=== PATIENT | female | born 1965 | race African-American/Black ===

== ENCOUNTER 2018-11-13 20:50 | Emergency (ER) | payer MEDICAID, OTHER ==
[~2018-11-13] VITALS: Ht 160 cm; Wt 72.6 kg
[~2018-11-13 20:50] MED LIST: ASPIRIN EC325 MG ORAL; BENZTROPINE MESY2 MG PO; CALCITRIOL0.25 MCG PO; DEPAKOTE500 MG PO; FLOVENT2 PUFFS INH; FOLIC ACID1 MG ORAL; GABAPENTIN400 MG ORAL; GEODON20 MG ORAL; KLONOPIN1 MG ORAL; LEVOTHYROXINE25 MCG ORAL; NEPHROVITE1 TAB ORAL; PROVERA10 MG IM; QUETIAPINE FUM200 MG ORAL; SEROQUEL200 MG ORAL
[2018-11-13 21:00] VITALS: BP 138/72
[2018-11-13] MEDS ORDERED: Acetaminophen 500mg (ES) tab ORAL ONE (21:00)
--- NOTE | 2018-11-13 21:00 | NUR ---
ED Nurse Note: Per RA 826 patient fell while walking with walker at [facility]-no KO. AO2 to name and place. Denies pain. VSS NAD
[2018-11-13] MEDS ORDERED: IBUPROFEN600 MG ORAL (21:02)
--- NOTE | 2018-11-13 21:02 | Emergency Room Report ---
History of Present Illness General Chief Complaint: Multiple Trauma/Fall Source: Patient, Medical Record, EMS Present Illness HPI This is a 53-year-old female with a psychiatric history as well as her blood pressure and renal failure on hemodialysis. Patient presents from a longterm with chief complaint of head injury. She slipped and fell backward hit her head. Did not pass out. This occur prior to arrival. Pain is 7 out of 10. No nausea no vomiting. No fever chills. No other complaint. Allergies: Coded Allergies: HALOPERIDOL (Verified Allergy, Unknown, 02/22/13) Patient History Past Medical History: see triage record, old chart reviewed, HTN, renal disease , dialysis Past Surgical History: other Pertinent Family History: none Social History: Denies: smoking Now: No Immunizations: other Reviewed Nursing Documentation: PMH: Agreed; PSxH: Agreed Nursing Documentation-PMH Past Medical History: No History, Except For Hx Dialysis: Yes - ESRD History Of Psychiatric Problem: Yes - paranoid schiz Hx Neurological Problems: Yes - schizophrenia, MR, vit D deficiency Hx Seizures: Yes Review of Systems Eye: Denies: eye pain, blurred vision ENT: Denies: ear pain, nose congestion, throat swelling Respiratory: Denies: cough, shortness of breath Cardiovascular: Denies: chest pain, palpitations Gastrointestinal: Denies: abdominal pain, diarrhea, nausea, vomiting Musculoskeletal: Denies: back pain, joint pain Skin: Denies: rash Neurological: Reports: headache; Denies: numbness Endocrine: Denies: increased thirst, increased urine Hematologic/Lymphatic: Denies: easy bruising All Other Systems: negative except mentioned in HPI Physical Exam Vital Signs Date Time Temp Pulse Resp B/P (MAP) Pulse Ox O2 Delivery O2 Flow Rate FiO2 11/13/18 20:43 98.6 92 16 138/72 98 Room Air vitals normal Sp02 EP Interpretation: reviewed, normal General Appearance: well appearing, no apparent distress, alert Head: normocephalic, atraumatic, other - Tender to occiput. No trauma Eyes: bilateral eye PERRL, bilateral eye EOMI ENT: hearing grossly normal, normal pharynx Neck: full range of motion, supple, no meningismus Respiratory: chest non-tender, lungs clear, normal breath sounds Cardiovascular #1: regular rate, rhythm, no murmur Gastrointestinal: normal bowel sounds, non tender, no mass, no organomegaly, no bruit, non-distended Musculoskeletal: back normal, gait/station normal, normal range of motion Psychiatric: mood/affect normal Skin: warm/dry Medical Decision Making Diagnostic Impression: Primary Impression: Head injury, acute Qualified Codes: S09.90XA - Unspecified injury of head, initial encounter ER Course Patient with head injury. No obvious trauma. No evidence of skull fracture or intracranial bleeding. CT scan is negative. Was sent back to longterm. CT/MRI/US Diagnostic Results CT/MRI/US Diagnostic Results : Imaging Test Ordered: CT head Impression read by radiologist. Negative. Last Vital Signs Date Time Temp Pulse Resp B/P (MAP) Pulse Ox O2 Delivery O2 Flow Rate FiO2 11/13/18 20:43 98.6 92 16 138/72 98 Room Air Status: improved Disposition: HOME, SELF-CARE Condition: Stable Scripts Ibuprofen* (MOTRIN*) 600 Mg Tablet 600 MG ORAL THREE TIMES A DAY, #30 TAB 0 Refills Prov: Tray Hernandez MD 11/13/18 Additional Instructions: Follow-up with your doctor in 7 days. Return if worse. Tray Hernandez MD Nov 13, 2018 21:02
--- NOTE | 2018-11-13 21:26 | NUR ---
ED Nurse Note: Pt down to CT.
--- NOTE | 2018-11-13 22:32 | NUR ---
Spoke with Jed at [facility]-aware of patient is going back by ambulance.
[2018-11-13 23:30] VITALS: BP 138/72
--- NOTE | 2018-11-13 23:30 | NUR ---
ED Nurse Note: [facility]. Report given to ambulance personnel. Pt AN2. NAD. VSS
--- NOTE | 2018-11-14 10:55 | Diagnostic Imaging Report ---
Indication: Head trauma headache Technique: Contiguous 5 mm thick transaxial imaging of the head obtained in a Siemens Sensation [address] scanner. Soft tissue and bone windows generated. Automatic Exposure Control was utilized. Total Dose length Product (DLP): [address] Dose Index Volume (CTDIvol): 70.38 mGy Comparison: none Findings: There is mild prominence of the ventricles, basal cisterns, and cerebral sulci consistent with atrophy. Mild, nonspecific, white matter hypoattenuation is noted throughout the brain consistent with chronic small vessel disease. There is no midline shift, edema, acute hemorrhage, mass effect, or abnormal extra-axial fluid collections. Bones and extra osseous soft tissues are unremarkable. Impression: No acute intracranial bleed, mass effect or edema. Mild atrophy of the brain. Nonspecific white matter hypoattenuation probably due to chronic small vessel disease. [facility] has communicated the preliminary results to the Emergency Department. Their findings are largely concordant with this report. The CT scanner at [facility] is accredited by the [employer] and the scans are performed using dose optimization techniques as appropriate to a performed exam including Automatic Exposure control.
== END 2018-11-13 23:30 | disposition home or self-care (01) ==
LOC: EDBD 20:50 → EMR 21:21
DX: S09.90XA Unspecified injury of head, initial encounter (principal); W01.198A Fall on same level from slipping, tripping and stumbling with subsequent striking against other object, initial encounter; Y92.129 Unspecified place in nursing home as the place of occurrence of the external cause; N18.6 End stage renal disease; Z99.2 Dependence on renal dialysis; F20.9 Schizophrenia, unspecified; G40.909 Epilepsy, unspecified, not intractable, without status epilepticus; R51 Headache
CPT/HCPCS: 70450; 99284

== ENCOUNTER 2018-11-14 15:33 | Emergency (ER) | payer OTHER ==
[~2018-11-14] VITALS: Ht 162.6 cm; Wt 77.1 kg
[~2018-11-14 15:33] MED LIST changes: +IBUPROFEN600 MG ORAL
--- NOTE | 2018-11-14 15:42 | NUR ---
ED Nurse Note: Pt PATIENCE from [facility] s/p ground level fall. Once in the morning and once in the morning. Complaining of left arm pain and left face pain. Rating the pain a 7/10. Hx of renal failure, schizo. A + O x4. Ambulatory. Skin warm to touch.
[2018-11-14 15:43] VITALS: BP 100/65
--- NOTE | 2018-11-14 16:03 | NUR ---
ED Nurse Note: Pt went down to Ct.
--- NOTE | 2018-11-14 16:23 | NUR ---
ED Nurse Note: Pt back from Ct.
--- NOTE | 2018-11-14 16:36 | Diagnostic Imaging Report ---
Indication: Headache Technique: Contiguous 5 mm thick transaxial imaging of the head obtained in a Siemens Sensation [address] scanner. Soft tissue and bone windows generated. Automatic Exposure Control was utilized. Total Dose length Product (DLP): 1738.[address] Dose Index Volume (CTDIvol): 70.38,17.3 mGy Comparison: 11/13/2018 Findings: There is mild prominence of the ventricles, basal cisterns, and cerebral sulci consistent with atrophy. Mild, nonspecific, white matter hypoattenuation is noted throughout the brain consistent with chronic small vessel disease. There is no midline shift, edema, acute hemorrhage, mass effect, or abnormal extra-axial fluid collections. Bones and extra osseous soft tissues are unremarkable. Impression: No acute intracranial bleed, mass effect or edema. Mild atrophy of the brain. Nonspecific white matter hypoattenuation probably due to chronic small vessel disease. No change from the prior day The CT scanner at [facility] is accredited by the [employer] and the scans are performed using dose optimization techniques as appropriate to a performed exam including Automatic Exposure control.
--- NOTE | 2018-11-14 16:43 | Diagnostic Imaging Report ---
Indication: Neck pain. Technique: Continuous helical imaging of the cervical spine was obtained transaxially from the skull base to the upper thoracic spine. 2-D coronal and sagittal reformatted images were obtained. Automatic Exposure Control was utilized. Total Dose length Product (DLP): 1738.[address] Dose Index Volume (CTDIvol): 70.38,17.3 mGy Comparison: None Findings: There is no acute fracture identified. There is no malalignment. C1-2 is unremarkable. Anterior disc osteophyte complex at C2-3 noted. The right facet is unremarkable. The left facet is abnormal with the subchondral irregularity and erosive changes on both sides of the facet joint. There are similar findings on the level below at the left C3-4 facet. The C3-4 disc is also markedly narrowed and there are erosive changes involving the endplates at this level. The findings are probably on the basis of an old discitis involving the C3-4 disc with involvement of the left C3-4 facet and the left C2-3 facet. In addition there is irregularity of the foramen transversarium at the level of C2. There is anterior fusion of large hypertrophic osteophytes (associated with anterior longitudinal ligament ossification) essentially resulting in interbody fusion C4-5 C5-6. There are bridging osteophytes with pseudoarthrosis involving C6-7 anteriorly and C3-4. This narrowing are noted at multiple levels. No definite bony central canal stenosis or bony neural foraminal stenosis identified. No soft tissue swelling identified. IMPRESSION: No acute fracture or other signs of trauma. Cortical endplate erosions at C3-4 and similar appearing facet joints on the left side at C3-4 and at C2-3 suspicious for old burnt out discitis, now with superimposed degenerative changes. Please correlate clinically. Anterior interbody fusion via hypertrophic ossified anterior longitudinal ligaments at C4-5 and C5-6. 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 The CT scanner at [facility] is accredited by the [employer] and the scans are performed using dose optimization techniques as appropriate to a performed exam including Automatic Exposure control.
--- NOTE | 2018-11-14 17:18 | Emergency Room Report ---
History of Present Illness General Chief Complaint: Multiple Trauma/Fall Source: Medical Record Present Illness HPI 53-year-old female presents to the emergency department complaining of 5 out of 10 in severity pain to the forehead status post fall this a.m. at nursing facility. Fall was unwitnessed and patient is a poor historian. Patient has history of end-stage renal disease requiring dialysis, paranoid schizophrenia, hypothyroidism, anemia with psychological developmental disorder. History of present illness and ROS are limited due to should being a poor historian patient was accompanied by nursing facility documentation reporting altered mental status status post mechanical fall. Allergies: Coded Allergies: HALOPERIDOL (Verified Allergy, Unknown, 02/22/13) Patient History Past Medical History: see triage record, psych hx - paranoid schizophrenia, renal disease, dialysis Past Surgical History: none Pertinent Family History: none Now: No Reviewed Nursing Documentation: PMH: Agreed; PSxH: Agreed Nursing Documentation-PMH Past Medical History: No History, Except For Hx Dialysis: Yes - ESRD Hx Neurological Problems: Yes - schizophrenia, MR, vit D deficiency Hx Seizures: Yes Review of Systems All Other Systems: limited Physical Exam Vital Signs Date Time Temp Pulse Resp B/P (MAP) Pulse Ox O2 Delivery O2 Flow Rate FiO2 11/14/18 15:32 97.0 80 16 102/66 95 Room Air 11/14/18 15:43 100 Sp02 EP Interpretation: reviewed, normal General Appearance: no apparent distress, alert, GCS 15, non-toxic Head: normocephalic, other - TTP to the forehead/ center, no hematoma, swelling or bruising noted. no lacerations Eyes: bilateral eye normal inspection, bilateral eye PERRL ENT: hearing grossly normal, normal voice, other - no evidence of CSF fluid/ or hemotympanum Neck: full range of motion Respiratory: lungs clear, normal breath sounds, speaking full sentences Cardiovascular #1: regular rate, rhythm Musculoskeletal: back normal, normal range of motion, non-tender Neurologic: alert, oriented x3, responsive, motor strength/tone normal, sensory intact, speech normal, grossly normal Psychiatric: other - Poor historian, avoidance of conversation. Skin: normal color, no rash, warm/dry, well hydrated, other - no bruises, no open wounds, no swelling or obvious deformities Medical Decision Making PA Attestation Dr. Jama is my supervising Physician whom patient management has been discussed with. Diagnostic Impression: Primary Impression: Contusion of head Qualified Codes: S00.93XA - Contusion of unspecified part of head, initial encounter Additional Impression: Fall Qualified Codes: W19.XXXA - Unspecified fall, initial encounter ER Course 53-year-old female presents to the emergency department complaining of 5 out of 10 in severity pain to the forehead status post fall this a.m. at nursing facility. Fall was unwitnessed and patient is a poor historian. Patient has history of end-stage renal disease requiring dialysis, paranoid schizophrenia, hypothyroidism, anemia with psychological developmental disorder. History of present illness and ROS are limited due to should being a poor historian patient was accompanied by nursing facility documentation reporting altered mental status status post mechanical fall. Ddx considered but are not limited to Fracture, dislocation, contusion, concussion Sprain/Strain/Spasm, hematoma Vital signs: are WNL, pt. is afebrile H&PE are most consistent with contusion, no evidence of focal neurological deficit, no loss of consciousness. ORDERS: -CT Head and C-Spine No Contrast---WNL ED INTERVENTIONS: - None required at this time. DISCHARGE: At this time pt. is stable for d/c to home. Will provide printed patient care instructions, and any necessary prescriptions. Care plan and follow up instructions have been discussed with the patient prior to discharge. CT/MRI/US Diagnostic Results CT/MRI/US Diagnostic Results #1: Imaging Test Ordered: CT Head no contrast Impression " No evidence of acute fracture, hemorrhage, or intracranial process, atrophy of the brain." --Per official radiology report- Please see report for specific details. CT/MRI/US Diagnostic Results #2: Imaging Test Ordered: CT C-spine No Contrast Impression " Osteophytes at several levels of the cervical vertebrae, cortical endplate erosions at C3 and C4 similar-appearing facet joints on the left side at C3-C4, degenerative changes. " --Per official radiology report- Please see report for specific details. Last Vital Signs Date Time Temp Pulse Resp B/P (MAP) Pulse Ox O2 Delivery O2 Flow Rate FiO2 11/14/18 15:43 80 16 Room Air 100 11/14/18 15:43 97.0 100/65 98 Status: unchanged Disposition: XF SNF Condition: Stable Referrals: NON PHYSICIAN (PCP) Additional Instructions: Take medications as directed. Follow up with a Primary Care Provider in 3-5 days, even if your symptoms have resolved. --Please review list of primary care clinics, if you do not already have a primary care provider Return sooner to ED if new symptoms occur, or current symptoms become worse. - Please note that this Emergency Department Report was dictated using [employer] professional technology software, occasionally this can lead to erroneous entry secondary to interpretation by the dictation equipment. Aide Winter Nov 14, 2018 17:18
--- NOTE | 2018-11-14 17:36 | NUR ---
ED Nurse Note: Tried giving report to SNF. No answer. Will try again.
--- NOTE | 2018-11-14 18:03 | NUR ---
ED Nurse Note: Tried calling SNF a second time and no answer. Notified Charge Nurse Moni.
--- NOTE | 2018-11-14 19:02 | NUR ---
HAND-OFF: Report given to Lobito Yousif RN.
--- NOTE | 2018-11-14 19:19 | NUR ---
ED Nurse Note: Called [facility] to notify that the pt will be returning. No anwser; notified nick Martinez RN.
--- NOTE | 2018-11-14 19:54 | NUR ---
ED Nurse Note: Spoke with PIEDAD Nix regarding pt return to facility. Pt stable sleeping in bed. NAD
[2018-11-14 21:00] VITALS: BP 101/64
--- NOTE | 2018-11-14 21:00 | NUR ---
ED Nurse Note: Patient left with [facility]. Report given to ambulance personnel.
== END 2018-11-14 21:00 ==
LOC: EDBD 15:33 → EMR 16:05
DX: S00.83XA Contusion of other part of head, initial encounter (principal); W19.XXXA Unspecified fall, initial encounter; Y92.129 Unspecified place in nursing home as the place of occurrence of the external cause; N18.6 End stage renal disease; Z99.2 Dependence on renal dialysis; F20.9 Schizophrenia, unspecified; E03.9 Hypothyroidism, unspecified; G31.9 Degenerative disease of nervous system, unspecified
CPT/HCPCS: 70450; 72125; 99284